=== PATIENT | male | born 1995 | race Caucasian/White ===

== ENCOUNTER 2017-01-16 20:02 | Emergency (ER) | payer BC ==
[2017-01-16] MEDS ORDERED: Sodium Chloride 0.9% 5 ML Syringe FLUSH PRN (20:04)
[2017-01-16] MEDS ORDERED: Sodium Chloride 0.9% 1,000 ML IV ONE (20:04)
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
[2017-01-16] MEDS ORDERED: Ondansetron 4 MG/2 ML SDV IVPUSH ONE (20:22)
[2017-01-16] MEDS ORDERED: HYDROmorphone 1 MG/ML Syringe IVPUSH ONE (20:22)
[2017-01-16] MEDS ORDERED: Lidocaine 2% with EPINEPHrine 1:200,000 20 ML SDV ONE (20:43)
[2017-01-16 20:46] LABS: CHLORIDE,CL 106 mmol/L (98-115); SODIUM,NA 140 mmol/L (136-145)
[2017-01-16] MEDS ORDERED: ceFAZolin 1 GM Vial IVPUSH ONE (20:48)
[2017-01-16] MEDS ORDERED: Acetaminophen/HYDROcodone 325-10 MG Tab ONE (21:12)
[2017-01-16] MEDS ORDERED: Amoxicillin/Clavulanate K 875-125 MG Tab ONE (21:12)
[2017-01-16] MEDS ORDERED: Amoxicillin/Clavulanate K 875-125 MG Tab PO ONE (21:12)
[2017-01-16] MEDS ORDERED: Acetaminophen/HYDROcodone 325-10 MG Tab PO ONE (21:12)
== END 2017-01-16 21:50 | disposition home or self-care (01) ==
LOC: SUPCPDRO 20:02 → KA.ED 20:02
DX: S91.302A Unspecified open wound, left foot, initial encounter (principal); W33.01XA Accidental discharge of shotgun, initial encounter
CPT/HCPCS: 12004; 36415; 73610; 73630; 80048; 85025; 86850; 86900; 86901; 96361; 96374; 96375; 99284; A9270; J0690; J1170; J2405; J7030